=== PATIENT | female | born 1960 | race Caucasian/White ===

== ENCOUNTER 2018-03-09 08:49 | Observation (INO) ==
[~2018-03-09 08:49] MED LIST: LIDOCAINE W/ SODIUM BICARB 0.5 ML SYR SUBD ONE; Nasal Sanitizer POPSWAB ampule 3 AMP (Nozin) PREOP DOSE ENOS SCH; ceFAZolin Inj 2gm (Premix) 2 GM/50 ML BAG IV ONE
[2018-03-09] MEDS ORDERED: ceFAZolin Inj 2gm (Premix) 2 GM/50 ML BAG IV ONE (09:02)
[2018-03-09] MEDS ORDERED: LIDOCAINE W/ SODIUM BICARB 0.5 ML SYR ONE (09:02)
[2018-03-09] MEDS ORDERED: Lactated Ringers 1,000 ML PRIMARY IV ONE (09:02)
[2018-03-09] MEDS: Lactated Ringers 1,000 ML PRIMARY IV SCH ×3 (09:56→19:32)
[2018-03-09] MEDS ORDERED: DEXAMETHASONE PF 10 MG/1 ML VIAL ONE (10:49)
[2018-03-09] MEDS ORDERED: Acetaminophen 1000mg Inj 1,000 MG/100 ML VIAL IV ONE (10:50)
[2018-03-09] MEDS ORDERED: MIDAZOLAM 5 MG/1 ML ONE (10:50)
[2018-03-09] MEDS ORDERED: fentaNYL Inj 250 MCG/5 ML VIAL ONE (10:50)
[2018-03-09] MEDS ORDERED: LIDOCAINE 2%/ EPI 1:200,000 - 20 ML VIAL ONE (10:51)
[2018-03-09] MEDS ORDERED: Mepivacaine Inj 1.5% 450 MG/30 ML VIAL ONE (10:51)
[2018-03-09] MEDS ORDERED: Propofol 1,000 MG/100 ML VIAL IV ONE (11:04)
[2018-03-09] MEDS ORDERED: Sodium Chloride 0.9% vial 10 ML ONE (11:35)
[2018-03-09] MEDS ORDERED: BACITRACIN 50,000 UNIT VIAL IRRIG ONE (11:35)
[2018-03-09] MEDS ORDERED: ONDANSETRON 4 MG/2 ML VIAL ONE (13:09)
--- NOTE | 2018-03-09 13:39 | CRNA.PROCE ---
Nerve Block Documentation - - Safety Measures: Time Out Taken, Site Verified - - Type of Nerve Block Used: Right Axillary Block Position for Nerve Block: Supine Moniters Used During Block: EKG, SPO2, NIBP Oxygen Supplemented: Yes Sedation Used - Enter Amount in Comment Field [ANES.SEDAT]: Midazolam (mg): Yes (3), Fentanyl (mcg): Yes (100) Skin Prep Used: ChloroPrep (Twice) Draped: No Technique: Nerve Stimulator Nerve Block Needle Used: 40 mm ProBlk II Local Anesthetic - Enter Amt in Comment Field [ANES.LOCNB]: 2 % Xylocaine with Epinephrine 1:200,000 (mL): Yes (20 ), Other Anesthetic: Yes (1.5% Mepivicain) - - PreOp Block : Time In: 11:15 PreOp Block : Time Out: 11:27 Anesthesia Time - Other Weight: 117.48 kg Height: 5 ft 9 in Body Mass Index (BMI): 38.2
[2018-03-09] MEDS ORDERED: BUPivacaine Liposome/PF (Exparel) Inj 20ml vial INFIL ONE (14:29)
--- NOTE | 2018-03-09 14:40 | ORTHO.OP ---
- - -: See Dictated Operative Report Procedure Codes - Upper Extremity Procedures Primary Wrist/Hand/Elbow Procedure Code: Other CPT Code(s) (73568 corin wilkes assisted)
[2018-03-09] MEDS ORDERED: HYDROmorphone 2 MG/1 ML IVP PRN ×2 (14:42→16:02)
[2018-03-09] MEDS ORDERED: HYDROcodone-APAP 7.5 MG-325 MG TABLET PO PRN (14:42)
[2018-03-09] MEDS ORDERED: ONDANSETRON 4 MG/2 ML VIAL IVP PRN ×2 (14:42→16:02)
[2018-03-09] MEDS ORDERED: Prochlorperazine Tab 10 MG TAB PO PRN ×2 (14:42→16:02)
[2018-03-09] MEDS ORDERED: Ondansetron ODT Tab 8 MG TAB PO PRN ×2 (14:42→16:02)
[2018-03-09] MEDS ORDERED: MAG HYDROX/AL HYDROX/SIMETH 30 ML SUSP PO PRN ×2 (14:42→16:02)
[2018-03-09] MEDS ORDERED: CALCIUM CARBONATE 500 MG (TUMS) CHEWABLE TABLET PO PRN ×2 (14:42→16:02)
[2018-03-09] MEDS ORDERED: BISACODYL 10 MG SUPPOSITORY RECTAL PRN ×2 (14:42→16:02)
[2018-03-09] MEDS ORDERED: ACETAMINOPHEN 325 MG TABLET PO PRN ×2 (14:42→16:02)
[2018-03-09] MEDS ORDERED: diphenhydrAMINE 25 MG CAPSULE PO PRN ×2 (14:42→16:02)
[2018-03-09] MEDS ORDERED: BISACODYL 5 MG TABLET PO PRN ×2 (14:42→16:02)
[2018-03-09] MEDS ORDERED: Lactated Ringers 1,000 ML PRIMARY IV SCH ×2 (14:45→16:02)
[2018-03-09] MEDS ORDERED: KETOROLAC 30 MG/1 ML VIAL ONE (14:47)
--- NOTE | 2018-03-09 15:43 | CRNA.PROGR ---
Anesthesia Time - Procedure/Recovery Time Start Date: 03/09/18 End Date: 03/09/18 Anesthesia : Time In: 12:11 Anesthesia : Time Out: 14:59 Anesthesia : Total Time: 168 - Block Time PreOp Block : Time In: 11:15 PreOp Block : Time Out: 11:27 - Total Anesthesia Time Total Anesthesia Time (minutes): 168 - Other Weight: 117.48 kg Height: 5 ft 9 in Body Mass Index (BMI): 38.2 Physical Status: P2 Anesthesia Type: General Anesthesia : LMA
[2018-03-09] MEDS ORDERED: KETOROLAC 15 MG/1 ML VIAL IVP PRN (16:04)
[2018-03-09] MEDS: HYDROcodone-APAP 7.5 MG-325 MG TABLET PO PRN ×2 (16:37→20:21)
--- NOTE | 2018-03-09 16:51 | PDOC(PROG) ---
Date of Service: 03/09/18 Time of Service: 16:46 Interval History: No chest pain, shortness breath, nausea or vomiting. Pain is about a 5-6/10 in right wrist/arm. Review of labs shows that patient had hyperthyroid pattern in July 2017, apparently patient was on supplement at that time and is now off of that. Has been notably hypertensive in OR and postoperatively. No prior history of hypertension. Objective : Exam - General General Appearance: No Acute Distress, Cooperative Additional General Exam Details: Vital Signs - Last Taken Temperature 97.5 F 03/09/18 16:00 Pulse Rate 70 03/09/18 16:00 Respiratory Rate 12 03/09/18 16:00 Blood Pressure 173/90 03/09/18 16:00 Pulse Ox 96 03/09/18 16:00 - Head Head Exam: Normal Inspection, Normocephalic, Atraumatic - Eye Eye Exam: No Scleral Icterus - ENT ENT Exam: Mucous Membranes Moist - Neck Neck Exam: JVP is not Raised - Respiratory Respiratory Exam: Clear to Auscultation - Bilaterally, Breathing Non Labored - Cardiovascular Cardiovascular Exam: RRR, No Murmur, No Clicks, No Gallops, No Rubs, No JVD - GI/Abdominal GI/Abdominal Exam: Normal Bowel Sounds, Non Tender, Non Distended, Soft - Rectal Rectal Exam: Deferred - External Exam: Deferred Exam: Deferred - Extremities Extremities Exam: No Clubbing Present, No Edema Present, No Cyanosis Present Additional Extremities Exam Details: right arm in sling - Neurological Neurological Exam: Alert, Oriented x 3, No Facial Droop, Speech Intact / Clear, Moves All Extremities Equally - Psychiatric Psychiatric Exam: Normal Affect, Normal Mood Assessment and Plan - Patient Problems (1) Elevated blood pressure reading Current Visit: Yes Status: Acute Code(s): R03.0 - Elevated blood-pressure reading, without diagnosis of hypertension (2) Fracture of right distal radius Current Visit: No Status: Acute Code(s): S52.501A - Unspecified fracture of the lower end of right radius, initial encounter for closed fracture Qualifiers: Encounter type: initial encounter Fracture type: closed Fracture morphology: unspecified fracture morphology Qualified Code(s): S52.501A - Unspecified fracture of the lower end of right radius, initial encounter for closed fracture - Assessment / Plan Additional Assessment/Plan Details: toradol PRN and hydrocodone for pain hold of on antihypertensive therapy until pain is better controlled--may need outpatient recheck on blood pressure--probably has hypertension. repeat thyroid studies in next few months.
--- NOTE | 2018-03-09 17:50 | ORTHO.PROG ---
Last Taken Vital Signs: Vital Signs - Last Taken Temperature 97.4 F 03/09/18 16:48 Pulse Rate 67 03/09/18 16:48 Respiratory Rate 12 03/09/18 16:48 Blood Pressure 166/75 03/09/18 16:48 Pulse Ox 95 03/09/18 16:48 Subjective: Patient still having a fair amount of pain 8 out of 10, medications just really given. Objective: Examination shows that the patient this demonstrable femoral pain today. I have loosened her splint she does have a little bit of passive stretch pain of the fingers. She has some firmness in the forearm but it is not taut at this point time. She has brisk refill decreased sensation along the small finger but reasonable median nerve distribution and decreased along the radial nerve distribution. Patient splint is placed and the wrap was loosened. Assessment: Status post right open reduction internal fixation for a significantly comminuted distal radius and ulna fracture. Patient with poor pain control at the current time, evaluating for compartment syndrome. Plan: The patient will continue with CMS checks every hour , continue with oral medications will add IV Tylenol and IV pain medication as needed. Ice and elevation. An protection of the arm.
[2018-03-09] MEDS ORDERED: Acetaminophen 1000mg Inj 1,000 MG/100 ML VIAL IV PRN (17:51)
[2018-03-09] MEDS ORDERED: MORPHINE SULFATE 2 MG/1 ML IVP PRN (18:02)
[2018-03-09] MEDS: ceFAZolin Inj 2gm (Premix) 2 GM/50 ML BAG IV SCH (19:33)
[2018-03-09] MEDS ORDERED: ceFAZolin Inj 2gm (Premix) 2 GM/50 ML BAG IV SCH (20:30)
[2018-03-10] MEDS: HYDROcodone-APAP 7.5 MG-325 MG TABLET PO PRN ×3 (00:30→08:24)
[2018-03-10] MEDS: Lactated Ringers 1,000 ML PRIMARY IV SCH ×2 (00:31→09:04)
[2018-03-10] MEDS: ceFAZolin Inj 2gm (Premix) 2 GM/50 ML BAG IV SCH (04:54)
--- NOTE | 2018-03-10 08:24 | ORTHO.PROG ---
Last Taken Vital Signs: Vital Signs - Last Taken Temperature 97.6 F 03/10/18 08:09 Pulse Rate 71 03/10/18 08:09 Respiratory Rate 20 03/10/18 08:09 Blood Pressure 146/58 03/10/18 08:09 Pulse Ox 92 03/10/18 08:09 Subjective: Patient doing better today pain seems to be controlled on oral medication and passive stretch pain has markedly improved Objective: Examination shows that the soft tissue is a little softer than it was yesterday passive stretch pain middle finger only and this seems to be at the extremes I think this is appropriate she has good sensation of the fingertips and fingers a mild to moderate amount of swelling she has good extension but still short of full extension of digits and has reasonable flexion to the limits of the splint. There is no excessive bleeding and brisk refill. Intake and Output - 8hrs 03/09/18 03/09/18 03/10/18 03/10/18 13:59 21:59 05:59 13:59 Intake: IV 1200 / 2367 1167 / 2367 Intake Oral Amount 240 / 1440 1200 / 1440 Output: Output, Urine Amount 500 / 1250 750 / 1250 200 / 200 Output, Estimated Blood Loss 20 / 20 Amount Other: Percent Meal Consumed Dinner 100% Number of Voids 1 Weight 117.48 kg 117.48 kg 120.474 kg Weight Measurement Method Standing Scale Vital Signs (Last 8 hours) Temp Pulse Resp BP Pulse Ox 03/10/18 08:09 97.6 F 71 20 146/58 92 03/10/18 07:00 92 03/10/18 05:00 98.2 F 71 16 137/52 94 03/10/18 04:00 95 03/10/18 03:00 94 03/10/18 00:40 98.2 F 70 20 138/60 94 Assessment: Status post right open reduction internal fixation of comminuted distal radius and ulnar fracture, concern for early compartment syndrome based on exam. Exam improved today Plan: At the current time we will release the patient to home. I think at this point in time we will make sure that we keep this iced and elevated and in the sling. We will have her follow up at the beginning of the week for dressing change. Call for any marked change and examination of not continuing to improve with concern of potential compartment syndrome.
[2018-03-10] MEDS ORDERED: CHOLECALCIFEROL 1000 IU TABLET PO SCH (09:00)
--- NOTE | 2018-03-10 09:51 | DCSUMMARY ---
Hospitalization Summary Admit Date: 03/09/2018 Discharge Date: 03/10/18 Primary Diagnosis:: right wrist fracture, intractable postsurgical pain Secondary Diagnosis:: Perioperative hypertension Hospital Course: This very pleasant 57-year-old female who had a right wrist fracture that required open reduction internal fixation. Please see Dr. Coyle's notes regarding the procedure. Postoperatively, there is concern for possible compartment syndrome as well as intractable pain and perioperative and intraoperative hypertension. We watched the patient overnight, were able to get good pain control. Thankfully, no evidence of compartment syndrome with monitoring. Blood pressures were elevated initially, but they did come down to the systolics in the 130s and 140s range. Today, the patient is doing much better. Her pain is controlled, she has no chest pain or shortness of breath, and she is ready to go home. I spoke with her, her 2 daughters, and her , physician. They understood the plan both from orthopedic side and from hospitalist side of recommendations. Assessment and Plan: 1. As per discharge assessments noted 2. Disposition: Patient is discharged home. 3. Condition on discharge, stable and improved. 4. Diet: regular diet 5. Activities: Restrictions of right arm as per orthopedics 6. Follow-Up: 1. Primary care physician as necessary. Monitor blood pressures. Repeat thyroid studies in 6 weeks. 7. Medications at the Time of Discharge: Home Medications Medication Instructions Recorded Confirmed Type HYDROcodone/APAP 7.5/325 Tab 1 - 2 tab PO Q4H PRN #40 tab 03/03/18 03/09/18 Rx [[place] 7.5/325 Tab] HYDROcodone/APAP 7.5/325 Tab 1 - 2 tab PO Q4H PRN tab 03/10/18 Rx [[place] 7.5/325 Tab] Exam - Vitals Vital Signs: Vital Signs Vital Signs - Last Taken Temperature 97.6 F 03/10/18 08:09 Pulse Rate 71 03/10/18 08:09 Respiratory Rate 20 03/10/18 08:09 Blood Pressure 146/58 03/10/18 08:09 Pulse Ox 92 03/10/18 08:09 Oxygen Flow Rate 1 Oxygen Delivery Method Room Air Height 5 ft 9 in Weight 265 lb 9.6 oz - General General Appearance: No Acute Distress, Cooperative - Eye Eye Exam: POSITIVE: No Scleral Icterus - Respiratory Respiratory Exam: POSITIVE: Clear to Auscultation - Bilaterally, Breathing Non Labored - Cardiovascular Cardiovascular Exam: POSITIVE: RRR, No Murmur, No Clicks, No Gallops, No Rubs, No JVD - Extremities Additional Extremities Exam Details: Right arm in sling. Patient Problems - Patient Problem List (1) Fracture of right distal radius Current Visit: No Status: Acute Code(s): S52.501A - Unspecified fracture of the lower end of right radius, initial encounter for closed fracture Qualifiers: Encounter type: initial encounter Fracture type: closed Fracture morphology: unspecified fracture morphology Qualified Code(s): S52.501A - Unspecified fracture of the lower end of right radius, initial encounter for closed fracture Category: Medical (2) Elevated blood pressure reading Current Visit: Yes Status: Acute Code(s): R03.0 - Elevated blood-pressure reading, without diagnosis of hypertension Category: Medical (3) Acute postoperative pain Current Visit: Yes Status: Acute Code(s): G89.18 - Other acute postprocedural pain Category: Medical
== END 2018-03-10 09:45 | disposition home or self-care (01) ==
LOC: MED/SURG 08:49 → OR 08:49
PROVIDERS: ADMIT Orthopaedic Surgery; ATTEND Orthopaedic Surgery